=== PATIENT | female | born 1970 | race Caucasian/White ===

== ENCOUNTER 2024-05-29 17:37 | Inpatient (IN) | payer MEDICARE, OTHER ==
[~2024-05-29] VITALS: Ht 165.1 cm; Wt 77.1 kg
[2024-05-29 17:57] LABS: BASOPHILS # (AUTO) 0.1 K/UL (0.0-0.2); BASOPHILS % (AUTO) 0.6 % (0.0-2.0); EOSINOPHILS # (AUTO) 0.3 K/uL (0.0-0.7); EOSINOPHILS % (AUTO) 1.3 % (0.0-7.0); HEMOGLOBIN 11.9 g/dL (10.9-14.3); LYMPHOCYTES # (AUTO) 6.2 K/uL (0.8-4.8); LYMPHOCYTES % (AUTO) 23.1 % (20.5-51.5); MEAN CORPUSCULAR HEMOGLOBIN 27.7 uug (24.7-32.8); MEAN CORPUSCULAR HGB CONC 32 g/dL (32.3-35.6); MEAN CORPUSCULAR VOLUME 85.9 fL (75.5-95.3); MONOCYTES # (AUTO) 0.7 K/uL (0.1-1.30); MONOCYTES % (AUTO) 2.6 % (0.0-11.0); NEUTROPHILS # (AUTO) 19.3 K/uL (1.8-8.9); NEUTROPHILS % (AUTO) 72.4 % (38.5-71.5); PLATELET COUNT (AUTO) 444 K/uL (179-408); RED BLOOD CELL COUNT(AUTO) 4.31 MIL/uL (3.63-4.92); RED CELL DISTRIBUTION WIDTH 12.8 % (12.3-17.7); WHITE BLOOD COUNT (AUTO) 26.6 K/uL (3.8-11.8)
[2024-05-29 18:03] LABS: DIFFERENTIAL COMMENT 1
[2024-05-29 18:05] LABS: CARBON DIOXIDE 23 mmol/L (21-32); CHLORIDE 100 mmol/L (98-107); CREATININE 1.1 mg/dL (0.6-1.3); GLUCOSE 263 mg/dL (74-106); POTASSIUM 2.9 mmol/L (3.5-5.1); SODIUM SERUM 138 mmol/L (136-145); UREA NITROGEN, BLOOD 9 mg/dL (7-18)
[2024-05-29 18:21] LABS: ALANINE AMINOTRANSFERASE 30 U/L (14-59); ALKALINE PHOSPHATASE 106 U/L (50-136); ASPARTATE AMINOTRANSFERASE 17 U/L (15-37); BILIRUBIN,DIRECT 0.3 mg/dL (0.0-0.2); BILIRUBIN,TOTAL 0.7 mg/dL (0.2-1.0); NT-PRO BNP 27 pg/mL (0-125)
[2024-05-29] MEDS ORDERED: methylPREDNISolone SOD SUCC 125 MG/2 ML VIAL ONE (19:04)
[2024-05-29] MEDS ORDERED: POTASSIUM CHLORIDE 20 MEQ TAB.PRT.SR ONE (19:04)
[2024-05-29] MEDS: POTASSIUM CHLORIDE 20 MEQ TAB.PRT.SR PO ONE (19:13)
[2024-05-29] MEDS: methylPREDNISolone SOD SUCC 125 MG/2 ML VIAL IV ONE (19:13)
[2024-05-29] MEDS ORDERED: LORAZEPAM 2 MG/1 ML VIAL ONE (20:03)
[2024-05-29] MEDS: LORAZEPAM 2 MG/1 ML VIAL IV ONE (20:10)
[2024-05-29] MEDS ORDERED: REMEDY ESSENTIAL ZINC PASTE 113 GM TP PRN (20:15)
[2024-05-29] MEDS ORDERED: ACETAMINOPHEN 325 MG TABLET PO PRN (20:15)
[2024-05-29] MEDS: FAMOTIDINE. 20 MG/2 ML VIAL IV ONE (20:15)
[2024-05-29] MEDS ORDERED: ONDANSETRON 4 MG/2 ML VIAL IV PRN (20:15)
[2024-05-29] MEDS ORDERED: MAGNESIUM HYDROXIDE 30 ML LIQUID UDC PO PRN (20:15)
[2024-05-29] MEDS ORDERED: FAMOTIDINE. 20 MG/2 ML VIAL IV ONE (20:19)
[2024-05-29 22:03] VITALS: BP 134/86; TEMP 98.7; O2SAT 97
[2024-05-29] MEDS: IV 1/2NS 1000 ML 1,000 ML IV PRN (23:35)
[2024-05-30] VITALS: BP 136/70; TEMP 97.8; O2SAT 93
[2024-05-30] MEDS ORDERED: NITROGLYCERIN 0.4 MG/TAB BOTTLE SL PRN (02:00)
[2024-05-30 06:57] LABS: BASOPHILS % (AUTO) 0.1 % (0.0-2.0); HEMOGLOBIN 11.9 g/dL (10.9-14.3); LYMPHOCYTES # (AUTO) 0.8 K/uL (0.8-4.8); LYMPHOCYTES % (AUTO) 7.6 % (20.5-51.5); MEAN CORPUSCULAR HEMOGLOBIN 28.7 uug (24.7-32.8); MEAN CORPUSCULAR HGB CONC 34 g/dL (32.3-35.6); MEAN CORPUSCULAR VOLUME 84.1 fL (75.5-95.3); MONOCYTES # (AUTO) 0.1 K/uL (0.1-1.30); NEUTROPHILS # (AUTO) 9.3 K/uL (1.8-8.9); NEUTROPHILS % (AUTO) 91.3 % (38.5-71.5); PLATELET COUNT (AUTO) 299 K/uL (179-408); RED BLOOD CELL COUNT(AUTO) 4.16 MIL/uL (3.63-4.92); RED CELL DISTRIBUTION WIDTH 12.6 % (12.3-17.7); WHITE BLOOD COUNT (AUTO) 10.2 K/uL (3.8-11.8)
[2024-05-30] MEDS: LEVOTHYROXINE SODIUM 25 MCG TABLET PO SCH (06:57)
[2024-05-30 07:11] LABS: DIFFERENTIAL COMMENT 1
[2024-05-30 07:19] LABS: CALCIUM 9.1 mg/dL (8.5-10.1); CREATININE 0.9 mg/dL (0.6-1.3); PHOSPHOROUS 3.7 mg/dL (2.5-4.9); POTASSIUM 4.2 mmol/L (3.5-5.1)
[2024-05-30 08:00] VITALS: BP 145/74; TEMP 97.8; O2SAT 100
[2024-05-30 11:44] VITALS: BP 132/74; TEMP 97.9; O2SAT 96
[2024-05-30 12:29] LABS: BASOPHILS % (AUTO) 0.1 % (0.0-2.0); HEMATOCRIT 34.2 % (31.2-41.9); HEMOGLOBIN 11.3 g/dL (10.9-14.3); LYMPHOCYTES # (AUTO) 1.1 K/uL (0.8-4.8); LYMPHOCYTES % (AUTO) 7.8 % (20.5-51.5); MEAN CORPUSCULAR HEMOGLOBIN 27.7 uug (24.7-32.8); MEAN CORPUSCULAR HGB CONC 33 g/dL (32.3-35.6); MEAN CORPUSCULAR VOLUME 83.4 fL (75.5-95.3); MONOCYTES # (AUTO) 0.6 K/uL (0.1-1.30); MONOCYTES % (AUTO) 4.3 % (0.0-11.0); NEUTROPHILS # (AUTO) 12.1 K/uL (1.8-8.9); NEUTROPHILS % (AUTO) 87.8 % (38.5-71.5); PLATELET COUNT (AUTO) 321 K/uL (179-408); RED BLOOD CELL COUNT(AUTO) 4.09 MIL/uL (3.63-4.92); RED CELL DISTRIBUTION WIDTH 12.5 % (12.3-17.7); WHITE BLOOD COUNT (AUTO) 13.7 K/uL (3.8-11.8)
[2024-05-30] MEDS: ALPRAZOLAM 0.25 MG TABLET PO PRN (12:41)
[2024-05-30] MEDS ORDERED: MELO-107 PO (14:00)
[2024-05-30] MEDS ORDERED: ERGO500040 PO (14:00)
[2024-05-30] MEDS ORDERED: DULO60CA45 PO (14:00)
[2024-05-30] MEDS ORDERED: LEVO50TA8 PO (14:23)
[2024-05-30] MEDS ORDERED: CLON1TAB12 PO (14:23)
[2024-05-30] MEDS ORDERED: DOCU100T2 PO (14:23)
[2024-05-30] MEDS ORDERED: OXYB-58 PO (14:23)
[2024-05-30] MEDS ORDERED: VALS40TA4 PO (14:23)
[2024-05-30] MEDS ORDERED: TOPI25TA49 PO (14:23)
[2024-05-30] MEDS ORDERED: GABA300T25 PO (14:23)
[2024-05-30] MEDS ORDERED: PANT40TA49 PO (14:23)
[2024-05-30] MEDS ORDERED: TRAZ-182 PO (14:23)
[2024-05-30] MEDS ORDERED: CYCL30DR OP (14:23)
[2024-05-30] MEDS ORDERED: ATOR10TA PO (14:23)
[2024-05-30] MEDS ORDERED: Medication Not On Formulary EA (Docusate Sodium 100 MG) PO PRN (15:15)
[2024-05-30] MEDS ORDERED: OXYBUTYNIN XL 5 MG TABSR PO PRN (15:15)
[2024-05-30] MEDS ORDERED: Medication Not On Formulary EA (Meloxicam 15 MG) PO PRN (15:15)
[2024-05-30] MEDS ORDERED: LEVOTHYROXINE SODIUM 50 MCG TABLET PO SCH (15:38)
[2024-05-30] MEDS ORDERED: VALSARTAN 40 MG TABLET PO SCH (15:40)
[2024-05-30] MEDS ORDERED: PANTOPRAZOLE SODIUM 40 MG TABLET.DR PO SCH (15:41)
[2024-05-30 15:42] VITALS: BP 134/76; TEMP 98; O2SAT 97
[2024-05-30] MEDS ORDERED: MELOXICAM 7.5 MG TABLET PO PRN (15:45)
[2024-05-30] MEDS ORDERED: DOCUSATE SODIUM 100 MG CAPSULE PO PRN (15:45)
[2024-05-30] MEDS ORDERED: TOPIRAMATE 25 MG TABLET PO SCH (17:00)
[2024-05-30] MEDS ORDERED: GABAPENTIN 600 MG PO SCH (17:00)
[2024-05-30] MEDS ORDERED: GABAPENTIN 300 MG CAPSULE PO SCH (17:00)
[2024-05-30] MEDS ORDERED: ATORVASTATIN 10 MG TABLET PO SCH (21:00)
[2024-05-30] MEDS ORDERED: TRAZODONE 50 MG TABLET PO SCH (21:00)
[2024-05-31] MEDS ORDERED: DULOXETINE 20 MG CAPSULE.DR PO SCH (09:00)
[2024-05-31] MEDS ORDERED: DULOXETINE 60 MG CAPSULE.DR PO SCH (09:00)
== END 2024-05-30 16:30 | disposition left against medical advice (07) | DRG 915 ==
LOC: ER 17:39 → TELE3 20:56
PROVIDERS: ADMIT Student in an Organized Health Care Education/Training Program; ATTEND Student in an Organized Health Care Education/Training Program
DX: T88.6XXA Anaphylactic reaction due to adverse effect of correct drug or medicament properly administered, initial encounter (principal); I21.A1 Myocardial infarction type 2; I16.1 Hypertensive emergency; T45.1X5A Adverse effect of antineoplastic and immunosuppressive drugs, initial encounter; E87.6 Hypokalemia; G35 Multiple sclerosis; Y92.532 Urgent care center as the place of occurrence of the external cause; Z86.79 Personal history of other diseases of the circulatory system; Z88.0 Allergy status to penicillin; D75.839 Thrombocytosis, unspecified; Z98.890 Other specified postprocedural states; Z53.29 Procedure and treatment not carried out because of patient's decision for other reasons
CPT/HCPCS: 36415; 71045; 83735; 84100; 84484; 85025; 85730; 93005; 93307; G0378; J2060; J2919; J3490